=== PATIENT | female | born 1990 | race Two or more races ===

== ENCOUNTER → 2024-07-11 | Outpatient (REF) | payer OTHER | LOC: M SFHCWAGY 17:03 | PROVIDERS: ATTEND Nurse Practitioner Family | DX: N73.9 Female pelvic inflammatory disease, unspecified (principal) ==

== ENCOUNTER → 2025-05-01 | Outpatient (CLI) | payer OTHER | LOC: M EKG 10:52 | PROVIDERS: ATTEND Registered Nurse | DX: R42 Dizziness and giddiness (principal) ==